=== PATIENT | female | born 1950 | race Caucasian/White ===

== ENCOUNTER 2016-10-18 07:16 | Inpatient (IN) | payer MEDICARE, BC ==
[2017-02-07] MEDS ORDERED: Scopolamine 1.5 MG Transdermal Patch TRDERM SCH (05:30)
[2017-02-07] MEDS ORDERED: Gabapentin 300 MG Cap PO ONE (05:30)
[2017-02-07] MEDS ORDERED: Thrombin (Bovine) 5,000 Unit Kit ONE (06:41)
[2017-02-07] MEDS ORDERED: Povidone-Iodine 10% Soln 118.25 ML Bottle ONE (06:42)
[2017-02-07] MEDS ORDERED: Bupivacaine 0.5%/EPINEPHrine 1:200,000 50 ML MDV ONE (06:42)
[2017-02-07] MEDS: Lactated Ringers 1,000 ML IV SCH ×2 (07:04→14:45)
[2017-02-07] MEDS ORDERED: Succinylcholine 200 MG/10 ML MDV ONE (07:06)
[2017-02-07] MEDS ORDERED: Glycopyrrolate 0.2 MG/ML 5 ML MDV ONE (07:06)
[2017-02-07] MEDS ORDERED: Rocuronium 50 MG/5 ML Vial ONE ×2 (07:06→07:59)
[2017-02-07] MEDS ORDERED: Dexamethasone 4 MG/ML SDV ONE (07:06)
[2017-02-07] MEDS ORDERED: Propofol 200 MG/20 ML SDV ONE (07:06)
[2017-02-07] MEDS ORDERED: Neostigmine Methylsulfate 1 MG/ML 5 ML Syringe ONE (07:06)
[2017-02-07] MEDS ORDERED: Ondansetron 4 MG/2 ML SDV ONE (07:06)
[2017-02-07] MEDS ORDERED: ceFAZolin 2 GM in Premix Bag 1 BAG IV ONE (07:30)
[2017-02-07] MEDS ORDERED: ceFAZolin 2 GM in Sodium Chloride 0.9% 50 ML IV ONE (07:45)
[2017-02-07] MEDS: Tranexamic Acid 730 MG in Sodium Chloride 0.9% 50 ML IV SCH ×2 (07:45→09:49)
[2017-02-07] MEDS ORDERED: Ketamine 500 MG/5 ML MDV IV ONE (07:45)
[2017-02-07] MEDS ORDERED: Lactated Ringers 1,000 ML ONE (08:02)
[2017-02-07] MEDS ORDERED: ePHEDrine 50 MG/ML SDV ONE (08:23)
[2017-02-07] MEDS ORDERED: fentaNYL 100 MCG/2 ML SDV ONE (08:53)
[2017-02-07] MEDS ORDERED: Sodium Chloride 0.9% 10 ML Syringe FLUSH PRN ×2 (09:44→10:31)
[2017-02-07] MEDS ORDERED: Sennosides 8.6 MG Tab PO PRN ×2 (09:44→10:31)
[2017-02-07] MEDS ORDERED: HYDROmorphone 1 MG/ML Syringe IVPUSH PRN ×2 (09:44→10:31)
[2017-02-07] MEDS ORDERED: Zolpidem 5 MG Tab PO PRN ×2 (09:44→10:31)
[2017-02-07] MEDS ORDERED: Ondansetron 4 MG/2 ML SDV IVPUSH PRN ×2 (09:44→10:31)
[2017-02-07] MEDS ORDERED: Aluminum Hydroxide/Magnesium Hydroxide/Simethicone Susp 30 ML Cup PO PRN ×2 (09:44→10:31)
[2017-02-07] MEDS ORDERED: Acetaminophen/oxyCODONE 325-5 MG Tab PO PRN (09:44)
[2017-02-07] MEDS ORDERED: Naloxone 0.4 MG/ML SDV IVPUSH PRN ×2 (09:44→10:31)
[2017-02-07] MEDS ORDERED: Magnesium Hydroxide 400 MG/5 ML Susp 30 ML Cup PO PRN ×2 (09:44→10:31)
[2017-02-07] MEDS ORDERED: ceFAZolin 2 GM in Sodium Chloride 0.9% 50 ML IV SCH (09:45)
[2017-02-07] MEDS ORDERED: Atropine/Diphenoxylate 0.025-2.5 MG Tab PO PRN ×2 (09:49→10:31)
[2017-02-07] MEDS ORDERED: Diazepam 5 MG Tab PO PRN (10:46)
[2017-02-07] MEDS: Acetaminophen/oxyCODONE 325-5 MG Tab PO PRN ×3 (10:51→19:30)
--- NOTE | 2017-02-07 11:13 | OR ---
DATE OF PROCEDURE: 02/07/2017 PREOPERATIVE DIAGNOSIS: Cervical stenosis, C4-C5. POSTOPERATIVE DIAGNOSIS: Cervical stenosis, C4-C5. PROCEDURES: 1. Anterior cervical diskectomy and fusion, C4-C5. 2. Use of operating microscope. 3. Use of intraoperative fluoroscopy. 4. Placement of interbody device, C4-C5. 5. Anterior instrumentation, C4-C5. 6. Partial corpectomy, C4. LIABILITY CLAIMS EXAMINER: Brandi Barboza NP. ANESTHESIA: General endotracheal intubation. FLUID: Lactated Ringer solution. ESTIMATED BLOOD LOSS: 10 mL. COMPLICATIONS: None. SPECIMEN: None. DISCHARGE DISPOSITION: Stable to PACU. INDICATIONS: The patient was seen in the clinic. She had failed nonoperative treatment. Preoperative imaging confirmed the above-mentioned diagnosis. Risks and benefits of the procedure were explained to the patient. Informed consent was obtained. DETAILS OF PROCEDURE: The patient was seen preoperatively by myself and the Anesthesia Staff in the preoperative holding area where the operative site was marked. She was brought to the operative suite by the anesthesia staff where general anesthesia was administered. She was on a Trav table. All extremities found to be well padded. Neuromonitoring leads were placed and were normal at baseline and remained normal throughout the case. The fluoroscopy unit was brought in without a drape to make sure we could visualize the levels which we could. The patient was then prepped and draped in a sterile manner at the time. The operating microscope was draped in a sterile manner. The intraoperative fluoroscopy unit was draped in a sterile manner. Time-out was called identifying the correct patient, correct procedure, the correct site, and antibiotics had begun within appropriate period of time. Lateral fluoroscopy was used to visualize the C4-C5 interspace. An oblique incision was made just medial to the sternocleidomastoid and carried for approximately 3 to 3.5 cm medially down to the level of the platysma. Bleeding was controlled with Bovie electrocautery and bipolar electrocautery during the case. The platysma was divided using Bovie electrocautery. Welander retractor was then used. I then used Metzenbaum and DeBaleah's to go to the fascia medial to the sternocleidomastoid down to the level of the prevertebral fascia using the Cloward as well as Metzenbaum and blunt dissection. Once this had been accomplished, I confirmed that we were at the appropriate level with intraoperative fluoroscopy with Bovie electrocautery. I then inserted two 35-mm Shadow-Line cervical blades for retraction. I then cleared the anterior disk space and then with Bovie and rongeurs, minimal space was available. No retractor could be put between the intervertebral space. Due to this reason, we performed a partial corpectomy approximately 50% of the inferior vertebral body of C4. This was carried down to the level of the posterior longitudinal ligament. I was then able to use my intervertebral distractors and undermined the posterior longitudinal ligament using a 3-0 angled curette. I then went through the posterior longitudinal ligament using a nerve hook and then cleared with #2 Kerrison. I went out to the incidents with my 3-0 angle curette. I then sequentially inserted trial devices from 5 until 8, deciding that 8 would be appropriate and confirmed this on fluoroscopy. I controlled the bleeding with thrombin-soaked Gelfoam as well as FloSeal and tamped with Ray-Beverly. I then inserted my spacer which was a Globus AGX 8 x 14, 7 degree spacer with a 12 x 14 x 8 plate and two 14 mm screws. I confirmed that the screw length was appropriate using intraoperative fluoroscopy as they were being put down. The medial border of the longus colli was then cauterized using bipolar electrocautery. I then irrigated with 2 L Betadine infused irrigation, took final films, and then placed FloSeal at the base and then tamped this with a damp Ray-Beverly, removed any excess and then placed my drain at the bottom of the prevertebral space and carried out the lateral incision. I then placed three 2-0 Vicryl interrupted sutures through the platysma followed by 3-0 Stratafix and the skin with local anesthetic, followed by a sterile dressing and then attached our BJ drain. The patient was then transferred to the hospital bed and taken to the PACU in stable condition. Haresh Carlisle DO /[id number]
[2017-02-07] MEDS: VERIFY SCOPOLAMINE PATCH TOP SCH (13:47)
[2017-02-07] MEDS: ceFAZolin 2 GM in Sodium Chloride 0.9% 50 ML IV SCH ×2 (14:44→21:59)
[2017-02-07] MEDS ORDERED: Benzocaine/Cetylpyridinium/Menthol Lozenge MUCMEM PRN (19:49)
[2017-02-07] MEDS ORDERED: Losartan 50 MG Tab PO SCH (21:00)
--- NOTE | 2017-02-07 21:40 | PCM.SN ---
- Free Text/Narrative Note: call from [address] [place] [address] Nursing; urinary retention. o; had cervical spinal surgery today a; urinary retention p; Nurse reports was told to contact Hospitalist for any bladder retention advise to place Myles, do a ua with micro.
[2017-02-07] MEDS: Losartan 50 MG Tab PO SCH (21:55)
[2017-02-08] MEDS: Acetaminophen/oxyCODONE 325-5 MG Tab PO PRN ×4 (00:14→12:37)
[2017-02-08] MEDS: ceFAZolin 2 GM in Sodium Chloride 0.9% 50 ML IV SCH (06:02)
[2017-02-08] MEDS ORDERED: Non-Formulary Medication 1 Each (Iron,Carbonyl/Ascorbic Acid [Vitron-C Tablet] 1 EACH) PO SCH (09:00)
[2017-02-08] MEDS ORDERED: VITRON C PO SCH (09:00)
[2017-02-08] MEDS ORDERED: Citalopram 20 MG Tab PO SCH (09:00)
[2017-02-08] MEDS ORDERED: Metoprolol Tartrate 50 MG Tab PO SCH ×2 (09:00)
[2017-02-08] MEDS ORDERED: Hydrochlorothiazide 25 MG Tab PO SCH ×2 (09:00)
[2017-02-08] MEDS ORDERED: Vitamin B Complex Tab PO SCH ×2 (09:00)
[2017-02-08] MEDS ORDERED: Non-Formulary Medication 1 Each (Citalopram Hydrobromide [Celexa] 20 MG) PO SCH (09:00)
[2017-02-08] MEDS ORDERED: Folic Acid 1 MG Tab PO SCH ×2 (09:00)
[2017-02-08] MEDS ORDERED: LUTEIN 20 MG PO SCH (09:00)
[2017-02-08] MEDS ORDERED: Non-Formulary Medication 1 Each (Lutein [Lutein] 20 MG) PO SCH (09:00)
[2017-02-08] MEDS: Losartan 50 MG Tab PO SCH (09:56)
[2017-02-08] MEDS: VERIFY SCOPOLAMINE PATCH TOP SCH (09:59)
[2017-02-08 12:23] VITALS: BP 110/70
--- NOTE | 2017-03-01 15:14 | PCM.DCSUM1 ---
Discharge Summary - Hospital Course Free Text/Narrative:: Patient is POD 2 of a cervical fusion. She is doing well at this time. She has no concerns. She is ambulating without any difficulties. She has no drainage noted. Her pain is under control with oral pain medication. - Discharge Data Discharge Date: 02/09/17 Discharge Disposition: Home, Self-Care 01 Condition: Good - Patient Summary/Data Consults: Consultations 02/07/17 09:44 OT Evaluation and Treatment [CONS] Routine Please Evaluate and Treat. OT Reason for Consult: Strengthening This query below is only for informational purposes and is not editable. PT Evaluation and Treatment [CONS] Routine Please Evaluate and Treat. PT Reason for Consult: Strengthening This query below is only for informational purposes and is not editable. - Patient Instructions Diet: Usual Diet as Tolerated Activity: Apply Ice, As Tolerated Driving: May Drive Today Showering/Bathing: May Shower, No Tub Bathing/Swimming Wound/Incision Care: Keep Operative Site/Wound Site Clean and Dry, Change Dressing Daily Notify Provider of: Fever, Increased Pain, Swelling and Redness, Drainage, Nausea and/or Vomiting - Discharge Plan Prescriptions/Med Rec: Acetaminophen/oxyCODONE [Percocet 325-5 MG] 1 tab PO Q6HR #90 tablet Diazepam [Valium] 5 mg PO Q6H PRN #30 tablet PRN Reason: Spasms Home Medications: Home Meds Citalopram Hydrobromide [Celexa] 20 mg PO DAILY 09/23/14 [History] Hydrochlorothiazide 25 mg PO DAILY 09/23/14 [History] Losartan Potassium 50 mg PO BID 09/23/14 [History] Metoprolol Tartrate 100 mg PO DAILY 09/23/14 [History] Folic Acid 1 mg PO DAILY 09/10/15 [History] Lutein 20 mg PO DAILY 09/10/15 [History] Magnesium 200 mg PO DAILY 09/10/15 [History] Iron,Carbonyl/Ascorbic Acid [Vitron-C Tablet] 1 each PO DAILY 10/28/15 [History] Multivit-Min/Iron Fum/Folic AC [Lkivg-Okyoics-Tyuukypc Tablet] 1 each PO DAILY 10/28/15 [History] Ondansetron [Zofran ODT] 4 mg PO Q4H PRN 10/28/15 [History] Diphenoxylate HCl/Atropine [Lomotil] 1 tab PO Q6H PRN 02/26/16 [History] [place]-3 Fatty Acids [Fish Oil] 600 mg PO DAILY 02/26/16 [History] Vitamin B Complex [B Complex] 1 each PO DAILY 02/26/16 [History] Acetaminophen/oxyCODONE [Percocet 325-5 MG] 1 tab PO Q6HR #90 tablet 02/08/17 [ Rx] Diazepam [Valium] 5 mg PO Q6H PRN #30 tablet 02/08/17 [Rx] Patient Handouts: Anterior Cervical Diskectomy and Fusion, Preventing Constipation After Surgery Referrals: Brandi Barboza, GUEST SERVICES OFFICER [Nurse Practitioner] - (1 month follow up) - Discharge Summary/Plan Comment DC Time >30 min.: Yes Discharge Summary/Plan Comment: Patient will be discharged home with self-care. She'll follow-up with orthopedic clinic in one month. She will notify us if she has any other issues. She'll be sent home on Percocet prescription. I encouraged her to take laxatives as needed. - Patient Data Vitals - Most Recent: Last Vital Signs Temp 35.9 C 02/08/17 12:21 Pulse 56 L 02/08/17 12:21 Resp 18 02/08/17 12:21 BP 110/70 02/08/17 12:21 Pulse Ox 91 L 02/08/17 12:21 Weight - Most Recent: 159 lb Med Orders - Current: Current Medications Discontinued Medications Al Hydroxide/Mg Hydroxide (Mag-Al Plus) 30 ml PO Q4H PRN PRN Reason: Indigestion Al Hydroxide/Mg Hydroxide (Mag-Al Plus) 30 ml PO Q4H PRN PRN Reason: Indigestion Benzocaine/Menthol (Cepacol Sore Throat) 1 lozenge MUCMEM ASDIRECTED PRN PRN Reason: Sore Throat Last Admin: 02/08/17 00:21 Dose: 1 jaziel Bupivacaine HCl/Epinephrine Bitart (Marcaine 0.5%/Epinephrine 1:200,000) Confirm Administered Dose 50 ml .ROUTE .STK-MED ONE Stop: 02/07/17 06:43 Last Admin: 02/07/17 08:30 Dose: 20 ml Citalopram Hydrobromide (Celexa) 20 mg PO DAILY NADINE Last Admin: 02/08/17 09:57 Dose: 20 mg Dexamethasone (Dexamethasone) Confirm Administered Dose 4 mg .ROUTE .STK-MED ONE Stop: 02/07/17 07:07 Diazepam (Valium) 5 mg IVPUSH Q6H PRN PRN Reason: Spasms Diazepam (Valium.) 5 mg PO Q6H PRN PRN Reason: Spasms Last Admin: 02/08/17 00:21 Dose: 5 mg Diphenoxylate HCl/Atropine (Lomotil 0.025-2.5 Mg) 1 tab PO Q6H PRN PRN Reason: Diarrhea Diphenoxylate HCl/Atropine (Lomotil 0.025-2.5 Mg) 1 tab PO Q6H PRN PRN Reason: Diarrhea Ephedrine Sulfate (Ephedrine Sulfate) Confirm Administered Dose 50 mg .ROUTE .STK-MED ONE Stop: 02/07/17 08:24 Fentanyl (Sublimaze) Confirm Administered Dose 100 mcg .ROUTE .STK-MED ONE Stop: 02/07/17 08:54 Fentanyl Citrate (Fentanyl) Confirm Administered Dose 500 mcg .ROUTE .STK-MED ONE Stop: 02/07/17 07:07 Folic Acid (Folic Acid) 1 mg PO DAILY REPLACED BY [facility] Folic Acid (Folic Acid) 1 mg PO DAILY REPLACED BY [facility] Last Admin: 02/08/17 09:56 Dose: 1 mg Gabapentin (Neurontin) 300 mg PO ONETIME ONE Stop: 02/07/17 05:31 Last Admin: 02/07/17 06:00 Dose: 300 mg Glycopyrrolate (Robinul) Confirm Administered Dose 1 mg .ROUTE .STK-MED ONE Stop: 02/07/17 07:07 Hydrochlorothiazide (Hydrochlorothiazide) 25 mg PO DAILY REPLACED BY [facility] Hydrochlorothiazide (Hydrochlorothiazide) 25 mg PO DAILY REPLACED BY [facility] Last Admin: 02/08/17 09:56 Dose: 25 mg Hydromorphone HCl (Dilaudid) 1 mg IVPUSH Q2H PRN PRN Reason: Pain Lactated Ringer's (Ringers, Lactated) 1,000 mls @ 100 mls/hr IV ASDIRECTED REPLACED BY [facility] Last Admin: 02/07/17 14:45 Dose: 100 mls/hr Tranexamic Acid 730 mg/ Sodium (Chloride) 57.3 mls @ 229.2 mls/hr IV Q3H REPLACED BY [facility] Stop: 02/07/17 10:59 Last Admin: 02/07/17 09:49 Dose: 229.2 mls/hr Ketamine HCl 100 mg/ Sodium (Chloride) 100 mls @ 15 mls/hr IV ASDIRECTED REPLACED BY [facility] Stop: 02/07/17 10:00 Cefazolin Sodium 2 gm/ Sodium (Chloride) 50 mls @ 100 mls/hr IV ONETIME ONE Stop: 02/07/17 08:14 Last Admin: 02/07/17 07:20 Dose: 100 mls/hr Lactated Ringer's (Ringers, Lactated) Confirm Administered Dose 1,000 mls @ as directed .ROUTE .STK-MED ONE Stop: 02/07/17 08:03 Cefazolin Sodium 2 gm/ Sodium (Chloride) 50 mls @ 100 mls/hr IV Q8H REPLACED BY [facility] Stop: 02/08/17 02:14 Last Admin: 02/07/17 13:53 Dose: Not Given Cefazolin Sodium 2 gm/ Sodium (Chloride) 50 mls @ 100 mls/hr IV Q8H REPLACED BY [facility] Stop: 02/08/17 06:29 Last Admin: 02/08/17 06:02 Dose: 100 mls/hr Ketamine HCl (Ketalar) 24 mg IV ONETIME ONE Stop: 02/07/17 07:46 Last Admin: 02/08/17 01:17 Dose: Not Given Losartan Potassium (Cozaar) 50 mg PO BID REPLACED BY [facility] Losartan Potassium (Cozaar) 50 mg PO BID REPLACED BY [facility] Last Admin: 02/08/17 09:56 Dose: 50 mg Magnesium Hydroxide (Milk Of Magnesia) 30 ml PO BID PRN PRN Reason: Constipation Magnesium Hydroxide (Milk Of Magnesia) 30 ml PO BID PRN PRN Reason: Constipation Last Admin: 02/08/17 08:33 Dose: 30 ml Metoprolol Tartrate (Lopressor) 100 mg PO DAILY REPLACED BY [facility] Metoprolol Tartrate (Lopressor) 100 mg PO DAILY REPLACED BY [facility] Last Admin: 02/08/17 09:56 Dose: 100 mg Naloxone HCl (Narcan) 0.2 mg IVPUSH ONETIME PRN PRN Reason: Oversedation Naloxone HCl (Narcan) 0.2 mg IVPUSH ONETIME PRN PRN Reason: Oversedation Neostigmine Methylsulfate (Neostigmine) Confirm Administered Dose 5 mg .ROUTE .STK-MED ONE Stop: 02/07/17 07:07 Verify Scopolamine (Patch) 0 each TOP DAILY REPLACED BY [facility] Last Admin: 02/08/17 09:59 Dose: Not Given Non-Formulary Medication (Citalopram Hydrobromide [Celexa]) 20 mg PO DAILY REPLACED BY [facility] Non-Formulary Medication (Iron,Carbonyl/Ascorbic Acid [Vitron-C Tablet]) 1 each PO DAILY REPLACED BY [facility] Non-Formulary Medication (Lutein [Lutein]) 20 mg PO DAILY REPLACED BY [facility] Vitron-C Tablet ( (Ptom)) 0 each PO DAILY REPLACED BY [facility] Last Admin: 02/08/17 09:58 Dose: Not Given Lutein 20 Mg (Ptom) 0 mg PO DAILY REPLACED BY [facility] Last Admin: 02/08/17 09:58 Dose: Not Given Ondansetron HCl (Zofran) Confirm Administered Dose 4 mg .ROUTE .STK-MED ONE Stop: 02/07/17 07:07 Ondansetron HCl (Zofran) 8 mg IVPUSH Q4H PRN PRN Reason: Nausea/Vomiting Ondansetron HCl (Zofran) 8 mg IVPUSH Q4H PRN PRN Reason: Nausea/Vomiting Oxycodone/Acetaminophen (Percocet 325-5 Mg) 2 tab PO Q4H PRN PRN Reason: Pain Oxycodone/Acetaminophen (Percocet 325-5 Mg) 2 tab PO Q4H PRN PRN Reason: Pain Last Admin: 02/08/17 12:37 Dose: 2 tab Povidone Iodine (Betadine 10% Soln) Confirm Administered Dose 1 ml .ROUTE .STK- MED ONE Stop: 02/07/17 06:43 Last Admin: 02/07/17 08:31 Dose: 1 ml Propofol (Diprivan 20 Ml) Confirm Administered Dose 200 mg .ROUTE .STK-MED ONE Stop: 02/07/17 07:07 Rocuronium [place] (Zemuron) Confirm Administered Dose 50 mg .ROUTE .STK-MED ONE Stop: 02/07/17 07:07 Rocuronium [place] (Zemuron) Confirm Administered Dose 50 mg .ROUTE .STK-MED ONE Stop: 02/07/17 08:00 Scopolamine (Transderm-Scop) 1.5 mg TRDERM Q72H REPLACED BY [facility] Stop: 02/10/17 03:30 Last Admin: 02/07/17 06:01 Dose: 1.5 mg Senna (Senna) 8.6 mg PO BID PRN PRN Reason: Constipation Senna (Senna) 8.6 mg PO BID PRN PRN Reason: Constipation Last Admin: 02/07/17 19:30 Dose: 8.6 mg Sodium Chloride (Saline Flush) 10 ml FLUSH ASDIRECTED PRN PRN Reason: Keep Vein Open Sodium Chloride (Saline Flush) 10 ml FLUSH ASDIRECTED PRN PRN Reason: Keep Vein Open Succinylcholine Chloride (Quelicin) Confirm Administered Dose 200 mg .ROUTE .STK -MED ONE Stop: 02/07/17 07:07 Thrombin (Thrombin-Jmi) Confirm Administered Dose 10,000 unit .ROUTE .STK-MED ONE Stop: 02/07/17 06:42 Last Admin: 02/07/17 08:31 Dose: 10,000 unit Vitamin B Complex (Vitamin B Complex) 1 each PO DAILY NADINE Vitamin B Complex (Vitamin B Complex) 1 each PO DAILY NADINE Last Admin: 02/08/17 09:57 Dose: 1 each Zolpidem Tartrate (Ambien) 5 mg PO BEDTIME PRN PRN Reason: Sleep Zolpidem Tartrate (Ambien) 5 mg PO BEDTIME PRN PRN Reason: Sleep - Exam General: Reports: Alert, Oriented Extremities: Normal Inspection, Normal Range of Motion, Non-Tender, No Pedal Edema, Normal Capillary Refill Skin: Reports: Warm, Dry Wound/Incisions: Reports: Healing Well, Dressing Dry and Intact Neurological: Reports: No New Focal Deficit, Normal Gait, Strength Equal Bilateral, Reflexes Equal Bilateral Psy/Mental Status: Reports: Alert *Q Meaningful Use (DIS) - VTE *Q VTE Criteria *Q: - Stroke *Q Stroke Criteria *Q: - AMI *Q AMI Criteria *Q:
== END 2017-02-08 13:00 | disposition home or self-care (01) | DRG 473 ==
LOC: JP.SDS 02-07 05:16 → JP.MS 02-07 05:16 → EDSTATUS 02-07 07:30 → JP.MS 02-07 09:44
PROVIDERS: ADMIT Orthopaedic Surgery; ATTEND Orthopaedic Surgery
PROC: 0RG10A1 (ICD-10-PCS; principal; 2017-02-07)
PROC: 0RB30ZZ Excision of Cervical Vertebral Disc, Open Approach (ICD-10-PCS; principal; 2017-02-07)
DX: M48.02 Spinal stenosis, cervical region (principal); R33.9 Retention of urine, unspecified; M54.9 Dorsalgia, unspecified; G89.29 Other chronic pain; F32.9 Major depressive disorder, single episode, unspecified; F41.9 Anxiety disorder, unspecified; Z87.891 Personal history of nicotine dependence; I12.9 Hypertensive chronic kidney disease with stage 1 through stage 4 chronic kidney disease, or unspecified chronic kidney disease; N18.9 Chronic kidney disease, unspecified; Z87.898 Personal history of other specified conditions; Z96.653 Presence of artificial knee joint, bilateral; Z79.82 Long term (current) use of aspirin; Z88.8 Allergy status to other drugs, medicaments and biological substances
CPT/HCPCS: 36415; 51798; 76001; 80048; 81001; 85025; 94762; 97162-GP; 97165-GO; 97530-GP; 97535-GP; A9270-GY; C1713; J0330; J0690; J1100; J2405; J2704; J2710; J3010; J7030; J7050; J7120

== ENCOUNTER 2017-02-09 13:10 | Emergency (ER) | payer MEDICARE, BC ==
[2017-02-09 13:29] VITALS: BP 152/102
--- NOTE | 2017-02-09 13:50 | EDM.PDOC ---
ED HPI GENERAL MEDICAL PROBLEM - General Chief Complaint: Neck Problem Stated Complaint: NECK PAIN Time Seen by Provider: 02/09/17 13:40 Source of Information: Reports: Patient, Family History Limitations: Reports: No Limitations - History of Present Illness INITIAL COMMENTS - FREE TEXT/NARRATIVE: 66-year-old female had cervical spinal surgery 2 days ago, discharged from the hospital yesterday returns with intense pain and inability to move her arms. She last took 2 of her pain pills 6 hours ago. No fevers or chills. No shortness of breath. Location: Reports: Neck, Other (Bilateral shoulders) Bilateral Shoulder Pain Score (Numeric/FACES): 10 - Related Data Allergies Allergy/AdvReac Type Severity Reaction Status Date / Time amlodipine AdvReac Cough Verified 02/09/17 13:30 diltiazem AdvReac Cough Verified 02/09/17 13:30 hydromorphone HCl AdvReac Hallucinati Verified 02/09/17 13:30 [From Dilaudid] ons lisinopril AdvReac Cough Verified 02/09/17 13:30 verapamil [Verapamil] AdvReac Cough Verified 02/09/17 13:30 Home Meds: Home Meds Citalopram Hydrobromide [Celexa] 20 mg PO DAILY 09/23/14 [History] Hydrochlorothiazide 25 mg PO DAILY 09/23/14 [History] Losartan Potassium 50 mg PO BID 09/23/14 [History] Metoprolol Tartrate 100 mg PO DAILY 09/23/14 [History] Folic Acid 1 mg PO DAILY 09/10/15 [History] Lutein 20 mg PO DAILY 09/10/15 [History] Magnesium 200 mg PO DAILY 09/10/15 [History] Iron,Carbonyl/Ascorbic Acid [Vitron-C Tablet] 1 each PO DAILY 10/28/15 [History] Multivit-Min/Iron Fum/Folic AC [Atpsj-Zbfjqqy-Tzytmzgn Tablet] 1 each PO DAILY 10/28/15 [History] Ondansetron [Zofran ODT] 4 mg PO Q4H PRN 10/28/15 [History] Diphenoxylate HCl/Atropine [Lomotil] 1 tab PO Q6H PRN 02/26/16 [History] [place]-3 Fatty Acids [Fish Oil] 600 mg PO DAILY 02/26/16 [History] Vitamin B Complex [B Complex] 1 each PO DAILY 02/26/16 [History] Acetaminophen/oxyCODONE [Percocet 325-5 MG] 1 tab PO Q6HR #90 tablet 02/08/17 [ Rx] Diazepam [Valium] 5 mg PO Q6H PRN #30 tablet 02/08/17 [Rx] Past Medical History HEENT History: Reports: None, Impaired Vision, Macular Degeneration Other HEENT History: wears glasses Cardiovascular History: Reports: Angina, Arrhythmia, High Cholesterol, Hypertension, SOB on Exertion, Syncope Respiratory History: Reports: SOB Gastrointestinal History: Reports: Chronic Constipation, Chronic Diarrhea, Colon Polyp, Hemorrhoids, Other (See Below) Other Gastrointestinal History: incisional hernia Genitourinary History: Reports: UTI, Recurrent MAINTENANCE PORTER History: Reports: Musculoskeletal History: Reports: Back Pain, Chronic, Gout, Neck Pain, Chronic, Osteoarthritis Neurological History: Reports: Headaches, Chronic, Migraines Psychiatric History: Reports: Anxiety, Depression Endocrine/Metabolic History: Reports: Vitamin D Deficiency Hematologic History: Reports: Anemia, B12 Deficiency, Folic Acid, Iron Deficiency - Infectious Disease History Infectious Disease History: Reports: Chicken Pox, Measles, Mumps, Rubella - Past Surgical History HEENT Surgical History: Reports: Cataract Surgery Cardiovascular Surgical History: Reports: None Respiratory Surgical History: Reports: Lung Biopsies, Lung Resection, Other ( See Below) GI Surgical History: Reports: Bariatric Procedure, Cholecystectomy, Colonoscopy , EGD, Hernia Repair/Other Female Surgical History: Reports: Section, Hysterectomy, Salpingo- Oophorectomy, Other (See Below) Other Female Surgeries/Procedures: bladder surgery Endocrine Surgical History: Reports: None Neurological Surgical History: Reports: None Musculoskeletal Surgical History: Reports: Knee Replacement, Other (See Below) Other Musculoskeletal Surgeries/Procedures:: thumb surgery Social & Family History - Family History Family Medical History: Noncontributory HEENT: Reports: Macular Degeneration Cardiac: Reports: Aneurysm GI: Reports: Chronic Constipation, Chronic Diarrhea : Reports: Other (See Below) Other Family History: bladder incontinence Musculoskeletal: Reports: Arthritis, Back pain, Chronic, Neck Pain, Chronic, Other (See Below) Other Musculoskeletal Family History: hip replacements Psychiatric: Reports: Psych Hospitalization(s), Psychosis Endocrine/Metabolic: Reports: Diabetes, type II Oncologic: Reports: Breast, Lung - Tobacco Use Smoking Status *Q: Former Smoker Years of Tobacco use: 23 Packs/Tins Daily: 3 Used Tobacco, but Quit: Yes Month Tobacco Last Used: 1986 Second Hand Smoke Exposure: No - Caffeine Use Caffeine Use: Reports: Coffee, Soda, Tea - Alcohol Use Days Per Week of Alcohol Use: 0 Number of Drinks Per Day: 7 Total Drinks Per Week: 0 - Recreational Drug Use Recreational Drug Use: No ED ROS GENERAL - Review of Systems Review Of Systems: See Below Constitutional: Reports: Malaise. Denies: Fever, Chills Respiratory: Denies: Shortness of Breath, Cough Cardiovascular: Denies: Chest Pain GI/Abdominal: Denies: Abdominal Pain, Nausea, Vomiting Musculoskeletal: Reports: Neck Pain, Shoulder Pain (Bilateral) Neurological: Denies: Headache ED EXAM, UPPER BACK/NECK PAIN - Physical Exam Exam: See Below Exam Limited By: No Limitations General Appearance: Alert, No Apparent Distress (Patient looks uncomfortable but not distressed) Head Exam: Atraumatic Neck Exam: Other (Patient has dressings over surgical incision on the anterior neck. There is no surrounding erythema or drainage) Neurologic: Other (Patient does have some soreness in her shoulders when moving her arms but she has near full range of motion of both shoulders, normal sensation and range of motion of the hands and elbows bilaterally) Course - Vital Signs Last Recorded V/S: Last Vital Signs Temp 97.9 F 02/09/17 13:25 Pulse 86 02/09/17 13:25 Resp 15 02/09/17 13:25 BP 152/102 H 02/09/17 13:25 Pulse Ox 96 02/09/17 13:25 - Re-Assessments/Exams Free Text/Narrative Re-Assessment/Exam: 02/09/17 14:37 Patient was given to her own oxycodone for pain control and sent for a CT scan without contrast of the cervical spine. The results were very reassuring and were reviewed by Dr. Carlisle. I reassured the patient and she was feeling better after pain medication. She is going to increase her oxycodone to 1 every 3 hours over the next couple of days until the postoperative inflammation starts to settle down, she'll recheck sometime next week if not improving satisfactorily. She can always return sooner if she feels she is worsening. Departure - Departure Time of Disposition: 14:55 Disposition: Home, Self-Care 01 Condition: Fair Clinical Impression: Other acute postoperative pain - Discharge Information Instructions: Pain Relief Preoperatively and Postoperatively Referrals: Lior Ortez MD [Primary Care Provider] - Forms: ED Department Discharge Care Plan Goals: Take 1 oxycodone every 3 hours and slowly wean apart pain medication times as tolerated over the next several days. Continue with diazepam as prescribed. Increase activity as tolerated and continue to follow your surgeon's postoperative instructions. Return anytime if worsening or concerns, or consider rechecking next week if not improving satisfactorily.
--- NOTE | 2017-02-09 14:56 | CT ---
Cervical Spine wo Cont INDICATION: post op pain, neuropathy TECHNIQUE: CT images of the cervical spine. Sagittal and coronal images reformatted. DLP: 599 mGycm COMPARISON: No prior CT. Preoperative cervical spine plain film 09/05/2016 FINDINGS: Postoperative changes anterior body and anterior fusion C4-5 new since the prior plain film exam. The superior fixation screw extends through the superior endplate of C4 into the C3-4 disc spa ce. Tiny air collections posterior to the disc space at this level. There is also a tiny air collecti on in the right supraclavicular region as well as induration and possible fluid. Small air bubbles an d induration of noted in the anterior neck on the right extending up to the level of the mandible. Th madeleine findings are likely postoperative in nature given surgery is performed yesterday. No evidence of abscess formation. Overall alignment of the cervical spine is anatomic. No compression deformities or subluxations. Mild facet arthropathy. Craniocervical junction is intact. IMPRESSION: Postoperative changes cervical spine as discussed above. Results discussed with Dr. Pavan Alcazar
== END 2017-02-09 14:55 | disposition home or self-care (01) ==
LOC: JP.ED 13:10
DX: G89.18 Other acute postprocedural pain (principal); M54.2 Cervicalgia; M25.512 Pain in left shoulder; M25.511 Pain in right shoulder; I10 Essential (primary) hypertension; E78.00 Pure hypercholesterolemia, unspecified; G43.909 Migraine, unspecified, not intractable, without status migrainosus; Z87.891 Personal history of nicotine dependence; Z87.440 Personal history of urinary (tract) infections; Z98.49 Cataract extraction status, unspecified eye; Z96.659 Presence of unspecified artificial knee joint; Z98.890 Other specified postprocedural states; Z79.899 Other long term (current) drug therapy; Z88.8 Allergy status to other drugs, medicaments and biological substances
CPT/HCPCS: 72125; 72125-26; 99284; 99284-25

== ENCOUNTER 2019-04-01 08:00 | Day surgery (SDC) | payer MEDICARE, OTHER ==
[2019-04-01] MEDS ORDERED: Dextrose 5%-Lactated Ringers 1,000 ML IV SCH (08:15)
[2019-04-01] MEDS ORDERED: Metoprolol Tartrate 50 MG Tab PO ONE (08:24)
[2019-04-01] MEDS ORDERED: Cyclobenzaprine 10 MG Tab PO STA (10:54)
[2019-04-01] MEDS ORDERED: Ampicillin/Sulbactam Na 1.5 GM in Sodium Chloride 0.9% 50 ML IV ONE (11:00)
[2019-04-01] MEDS ORDERED: Midazolam 1 MG/ML 2 ML SDV ONE (11:36)
[2019-04-01] MEDS ORDERED: fentaNYL 100 MCG/2 ML SDV ONE (11:36)
[2019-04-01] MEDS ORDERED: Propofol 200 MG/20 ML SDV ONE (11:36)
[2019-04-01 13:16] VITALS: BP 110/7; PULSE 60
--- NOTE | 2019-04-12 14:55 | OR ---
DATE OF PROCEDURE: 04/01/2019 SURGEON: Deven Carlisle MD PREOPERATIVE DIAGNOSIS: Right upper quadrant pain associated with thickening in proximal transverse colon on CAT scan. POSTOPERATIVE DIAGNOSIS: Grossly normal colonoscopy. OPERATIVE PROCEDURE: Flexible colonoscopy with random colorectal biopsies involving transverse colon to rule out microscopic colitis. ANESTHESIA: IV sedation. INDICATIONS FOR PROCEDURE: This is a 68-year-old female presenting with some ongoing right upper quadrant pain. She is status post previous cholecystectomy. A CT scan was obtained, which showed some thickening of the transverse colon in the proximal area, i.e. in the right upper quadrant. The patient will undergo colonoscopy with biopsies and/or polypectomy as indicated. Potential risks including bleeding and perforation were discussed, and the patient wishes to proceed. DETAILS OF PROCEDURE: The patient was taken to the operating room and placed in a left lateral decubitus position. IV sedation was administered, after which the initial digital rectal exam was performed and was unremarkable. Colonoscope was then passed rectally with retroflexion revealing uncomplicated hemorrhoidal columns. The scope was then eventually passed to the level of the cecum. The prep was fairly good with only a small amount of liquid stool being present. The findings overall appeared to be entirely normal. She does have a history of previous polyps having been removed and no recurrent polyps were noted. Likewise, there were no diverticula and there were no areas of obvious colitis. Specifically, the area of the proximal transverse colon appeared to be grossly normal. Random biopsies of that region of the colon were then obtained to rule out a microscopic colitis. Scope was then withdrawn and the procedure was then concluded. The patient will be set up for followup with either Dr. De La Cruz or Dr. Ortez in [facility] in roughly 2 weeks. Deven Carlisle MD Job #: [id number]
== END 2019-04-01 13:28 | disposition home or self-care (01) ==
LOC: JP.SDS 08:00
PROVIDERS: ATTEND Surgery
DX: R10.11 Right upper quadrant pain (principal); K64.9 Unspecified hemorrhoids; I12.9 Hypertensive chronic kidney disease with stage 1 through stage 4 chronic kidney disease, or unspecified chronic kidney disease; N18.9 Chronic kidney disease, unspecified; F32.9 Major depressive disorder, single episode, unspecified; F41.9 Anxiety disorder, unspecified; Z86.010 Personal history of colon polyps
CPT/HCPCS: 36415; 45380; 80048; 83735; 84100; 88305; A9270; J0287; J2250; J2704; J3010; J7042; J7050

== ENCOUNTER 2024-01-26 08:56 | Day surgery (SDC) | payer MEDICARE, OTHER ==
[2024-01-26] MEDS ORDERED: fentaNYL 50 MCG/ML SDV ONE (09:15)
[2024-01-26] MEDS ORDERED: Propofol 200 MG/20 ML SDV ONE (09:16)
[2024-01-26] MEDS: Sodium Chloride 0.9% 1,000 ML IV SCH (10:15)
[2024-01-26 12:03] VITALS: BP 133/68; PULSE 55
== END 2024-01-26 12:13 | disposition home or self-care (01) ==
LOC: JP.SDS 08:56
PROVIDERS: ATTEND Surgery
DX: R19.5 Other fecal abnormalities (principal); K92.2 Gastrointestinal hemorrhage, unspecified
CPT/HCPCS: 43235; J2704; J3010; J7030

== ENCOUNTER 2024-01-30 08:00 | Day surgery (SDC) | payer MEDICARE, OTHER ==
[2024-01-30] MEDS: Sodium Chloride 0.9% 1,000 ML IV SCH (08:22)
[2024-01-30] MEDS ORDERED: fentaNYL 50 MCG/ML SDV ONE (09:30)
[2024-01-30] MEDS ORDERED: Propofol 200 MG/20 ML SDV ONE (09:30)
[2024-01-30 12:08] VITALS: PULSE 51
[2024-01-30 12:44] VITALS: BP 131/45
== END 2024-01-30 12:39 | disposition home or self-care (01) ==
LOC: JP.SDS 08:00
PROVIDERS: ATTEND Surgery
DX: D12.2 Benign neoplasm of ascending colon (principal); D12.3 Benign neoplasm of transverse colon; D12.5 Benign neoplasm of sigmoid colon; I25.10 Atherosclerotic heart disease of native coronary artery without angina pectoris; E11.22 Type 2 diabetes mellitus with diabetic chronic kidney disease
CPT/HCPCS: 00811; 45380; 45385; 88305; J2704; J3010; J7030